=== PATIENT | male | born 1935 | race Caucasian/White ===

== ENCOUNTER 2018-06-19 07:44 | Outpatient (CLI) | payer MEDICARE ==
--- NOTE | 2018-06-19 10:07 | CT ---
CT HEAD WITH AND WITHOUT CONTRAST: Multiple axial tomograms are obtained through the head without IV enhancement. This was followed by postcontrast images after administration of IV iodinated contrast. INDICATION: Vertigo. FINDINGS: The noncontrast images show cortical atrophy. The ventricles have normal size and position consideri ng the degree of atrophy. There is no evidence of hemorrhage, mass, edema, or infarct on the precont rast study. Review of the postcontrast images shows expected vascular opacification. No abnormal enhancement sandra ntified. There is no abnormal enhancement seen in either CP angle region. The visualized sinuses and mastoids are well aerated and are clear. 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 Pre and postcontrast CT head otherwise unremarkable. POS: [facility]
[2018-06-19] MEDS ORDERED: Iopamidol 370 76% 100 ML VIAL ONE (10:08)
== END 2018-06-19 07:45 | disposition home or self-care (01) ==
LOC: CT 07:44
PROVIDERS: ATTEND Otolaryngology Plastic Surgery within the Head & Neck
DX: R42 Dizziness and giddiness (principal)
CPT/HCPCS: 70470; 82565